=== PATIENT | female | born 1960 | race Caucasian/White ===

== ENCOUNTER 2016-07-26 08:48 | Outpatient (CLI) | payer BC ==
[~2016-07-26] VITALS: Ht 162.6 cm; Wt 47.6 kg
--- OUTSIDE RECORDS SUMMARY | 2016-07-26 08:50 | XMS REPORT | Continuity of Care Document ---
Author Author [facility] Organization [facility] Address Unknown Phone Unavailable Care Team Providers Care Police Liaison Name Role Phone PCP Unavailable Source Comments Some departments are not documenting in the electronic medical record. If you do not see the information that you expected, contact Release of Information in the Health Information Management department at [phone] for further assistance in locating additional records.[facility] Active Allergies and Adverse Reactions Not on File Current Medications Not on file Active Problems Not on file Social History Tobacco Use Types Packs/Day Years Used Date Never Assessed Plan of Care Date Type Specialty Providers Description 08/23/2016 Appointment Orthopedic Surgery Duane Soto MD [address] [facility] [address] [place] [address] [phone] (Fax) Health Maintenance Due Date Last Done Comments Hepatitis C Screening 1960 Physical (Comprehensive) 08/18/1966 Exam Pertussis Vaccine 08/18/1970 Tetanus Vaccine 08/18/1976 Cervical Cancer Screening 08/18/1980 Breast Cancer Screening 1999 Colorectal Cancer 08/18/2009 Screening Influenza Vaccine 01/28/2016 Results from Last 3 Months Not on file
[2016-07-26] MEDS ORDERED: BUDE10.2 IH (09:23)
[2016-07-26] MEDS ORDERED: BUPR1FIL3 SL (09:23)
[2016-07-26] MEDS ORDERED: CITA40TA11 PO (09:23)
[2016-07-26] MEDS ORDERED: GABA-488 PO (09:23)
== END 2016-07-26 09:27 ==
LOC: PREOP 08:48
PROVIDERS: ATTEND Pain Medicine Pain Medicine
DX: Z01.818 Encounter for other preprocedural examination (principal); M54.5 Low back pain; G89.4 Chronic pain syndrome

== ENCOUNTER 2016-07-29 05:57 | Day surgery (SDC) | payer BC ==
[~2016-07-29] VITALS: Ht 162.6 cm; Wt 47.6 kg
[~2016-07-29 05:57] MED LIST: BUDE10.2 IH; BUPR1FIL3 SL; CITA40TA11 PO; GABA-488 PO
--- OUTSIDE RECORDS SUMMARY | 2016-07-29 06:01 | XMS REPORT | Continuity of Care Document ---
Author Author [facility] Organization [facility] Address Unknown Phone Unavailable Care Team Providers Care Stock Grader Name Role Phone PCP Unavailable Source Comments Some departments are not documenting in the electronic medical record. If you do not see the information that you expected, contact Release of Information in the Health Information Management department at [phone] for further assistance in locating additional records.[facility] Active Allergies and Adverse Reactions Not on File Current Medications Not on file Active Problems Not on file Social History Tobacco Use Types Packs/Day Years Used Date Never Assessed Plan of Care Date Type Specialty Providers Description 08/23/2016 Appointment Orthopedic Surgery Duane Soto MD [address] [facility] [address] [place] [address] [phone] (Fax) Health Maintenance Due Date Last Done Comments Hepatitis C Screening 1960 Physical (Comprehensive) 08/18/1966 Exam Pertussis Vaccine 08/18/1970 Tetanus Vaccine 08/18/1976 Cervical Cancer Screening 08/18/1980 Breast Cancer Screening 1999 Colorectal Cancer 08/18/2009 Screening Influenza Vaccine 01/28/2016 Results from Last 3 Months Not on file
--- OUTSIDE RECORDS SUMMARY | 2016-07-29 06:01 | XMS REPORT | Continuity of Care Document ---
Author Author [facility] Organization [facility] Address Unknown Phone Unavailable Care Team Providers Care Sociology Professor Name Role Phone PCP Unavailable Source Comments Some departments are not documenting in the electronic medical record. If you do not see the information that you expected, contact Release of Information in the Health Information Management department at [phone] for further assistance in locating additional records.[facility] Active Allergies and Adverse Reactions Not on File Current Medications Not on file Active Problems Not on file Social History Tobacco Use Types Packs/Day Years Used Date Never Assessed Plan of Care Date Type Specialty Providers Description 08/23/2016 Appointment Orthopedic Surgery Duane Soto MD [address] [facility] [address] [place] [address] [phone] (Fax) Health Maintenance Due Date Last Done Comments Hepatitis C Screening 1960 Physical (Comprehensive) 08/18/1966 Exam Pertussis Vaccine 08/18/1970 Tetanus Vaccine 08/18/1976 Cervical Cancer Screening 08/18/1980 Breast Cancer Screening 1999 Colorectal Cancer 08/18/2009 Screening Influenza Vaccine 01/28/2016 Results from Last 3 Months Not on file
[2016-07-29] MEDS ORDERED: LACTATED RINGERS 1,000 ML IV PRN (06:56)
[2016-07-29] MEDS ORDERED: proPOfol 200 MG/20 ML (DIPRIVAN) VIAL IV ONE (06:58)
[2016-07-29] MEDS ORDERED: LACTATED RINGERS 1,000 ML IV ONE (06:58)
[2016-07-29] MEDS ORDERED: fentaNYL INJECTION 100 MCG/2 ML AMP ONE (06:58)
[2016-07-29] MEDS ORDERED: MIDAZOLAM 2 MG/2 ML (VERSED) VIAL ONE (06:59)
[2016-07-29] MEDS ORDERED: ceFAZolin 1 GM/NS 50 ML IVPB IV ONE ×2 (07:00)
[2016-07-29 07:10] VITALS: BP 107/54
[2016-07-29] MEDS ORDERED: LIDOCAINE 1% INJ 20 ML (XYLOCAINE) VIAL ONE (07:12)
[2016-07-29] MEDS ORDERED: MUPIROCIN 2% OINT 22 GM (BACTROBAN) TUBE ONE (07:12)
--- NOTE | 2016-07-29 07:27 | Progress Note-Pre Operative ---
Pre-Operative Progress Note H&P Reviewed The H&P was reviewed, patient examined and no changes noted. Date H&P Reviewed: Jul 29, 2016 Time H&P Reviewed: 07:27 Pre-Operative Diagnosis: chronic pain syndrome, lumbago, degenerative disc disease BRIDGET ELIZABETH MD Jul 29, 2016 7:27 am
[2016-07-29] MEDS ORDERED: ONDANSETRON 4 MG/2 ML (SDV) Z0FRAN IVP PRN (08:45)
[2016-07-29] MEDS ORDERED: morphine INJ 10 MG/ML 1ML (SYR OR VIAL) IVP PRN (08:45)
--- NOTE | 2016-07-29 08:54 | Discharge Inst-Simple/Standard ---
Discharge Inst-Standard Patient Instructions/Follow Up Plan of Care/Instructions/FU: Call clinic for any fevers, chills or bleeding/drainage from surgical site. Do not remove the dressings. No showers or bathing for 7 days. Turn off the spinal cord stimulator when driving. Follow up in clinic on 08/03/16 at 10:00 am Call the spinal cord stimulator lead generation representative or pain clinic for any questions or concerns. Activity as Tolerated: Yes Discharge Diet: No Restrictions BRIDGET ELIZABETH MD Jul 29, 2016 08:54
--- NOTE | 2016-07-29 08:57 | Operative Report ---
Operative Report Date of Procedure/Surgery Jul 29, 2016 Post-Operative Diagnosis chronic pain syndrome, lumbago, degenerative disc disease lumbar Procedure Performed Name of Procedure: AP Film of Thoracolumbar Spine w/ fluoroscopy guidance and interpretation Placement of specialized epidural needle to the L2-3 inter space bilaterally Placement of linear lead with dual 8 electrodes to the T7-T8 area Intra-operative complex programming of lead taking 30 minutes. Anchoring the spinal cord stimulator lead to the skin Complex programming in recovery taking 30 minutes. Description of Procedure Anesthesia Type: MAC Estimated blood loss (mL): <5 ml Specimen(s) collected none Indications The patient is an established patient with the above known diagnosis. The patient understands the reason for the procedure along with the risks, benefits and alternatives available. The patient has had the opportunity to ask questions prior to the procedure, and the patient has given written, informed, consent to proceed with the procedure. Medical Necessity: This patient has chronic pain that has failed to respond to conservative measures as outlined in the original history and physical exam. Patient's symptoms include pain in the low back and left leg. The goals of treatment are to 1) achieve optimal pain control, recognizing that a pain-free state may not be achievable; 2) minimize adverse outcomes; 3) enhance functional abilities, and physical and psychological well-being; and 4) enhance the quality of life for patients with chronic pain. Procedure After obtaining written informed consent patient. Patient was taken to the operating room. Pre-procedure blood pressure and pulse were stable and recorded in patients clinic chart. A formal time out was performed. Ancef 1 gm IV was given. The patient was placed in the prone position on operating room table. The patient was attached to a vital sign monitor, continuously monitoring saturation through pulse oximeter, pulse rate, and routine checks on the blood pressure as recorded in the anesthesia record. Moderate level sedation was then achieved by anesthesia as detailed in anesthesia record. A large portion of the dorsal cavity was scrubbed with a micro-antibacterial surgical solution. The patient was draped in typical sterile fashion. After confirmation of vertebral count through thorocolumbar films, the C-arm was used to help define the angle and access point for the epidural needle. Prior to needle placement, and after location of the access point, lidocaine 1% was infiltrated into the skin and deeper tissue area for localization prior to specialized epidural needle placement. After the lidocaine had taken effect, a Touhy needle size 14- guage was introduced and advanced at the level of L2-L3 on the right and left side. Once the loss of resistance was positive using a glass syringe, an 8 electrode linear lead was channeled through the epidural needle and guided carefully to the T7-T8 inter space. The same steps were followed to place an 8 electrode lead midline to the left of the first lead. This placement gave appropriate stimulation. Various program settings were worked through within the operating room, to ensure appropriate coverage with the stimulation. Minor adjustments were made as needed to develop excellent coverage. There was no evidence of paresthesia, heme or CSF. Once the coverage was optimal, the guide needle was removed from the insertion site. The leads then were anchored using the tapered anchor 2-0 silk. Sterile dressing applied using tegaderm, bacitracin ointment and gauze. The patient was then taken from the operating room via stretcher and placed in a recovery room. Once in the recovery room, the fine tune adjustments were made to the stimulation pattern. This additional programming was needed to give the patient optimal coverage during the trial. Post operatively the patient was monitored until stable. Following the procedure the patient's vital signs were stable. fluoro time are recorded in the patient chart. Allergies and Home Medications Allergies Coded Allergies: No Known Drug Allergies (Unverified , 07/26/16) Home Medications Budesonide/Formoterol Fumarate 10.2 Gm Hfa.aer.ad 2 PUFF IH QID (Reported) Buprenorphine HCl/Naloxone HCl 1 Each Film 1 EACH SL QID (Reported) Citalopram Hydrobromide 40 Mg Tablet 40 MG PO DAILY (Reported) Gabapentin 300 Mg Capsule 300 MG PO HS (Reported) BRIDGET ELIZABETH MD Jul 29, 2016 08:56
[2016-07-29 09:10] VITALS: BP 90/53
[2016-07-29 09:40] VITALS: BP 93/45
--- NOTE | 2016-07-29 09:41 | Diagnostic Imaging Report ---
INDICATION: Back pain. Intraoperative fluoroscopy used per Dr. Cartagena during placement of stimulator leads into the thoracic canal. Single view demonstrates leads overlying the thoracic canal, tip not well visualized. 9 minutes and 53 seconds of fluoroscopy time was used. IMPRESSION: Intraoperative fluoroscopy demonstrates nerve stimulator device in place overlying the thoracic canal. Dictated by: Dictated on workstation # [id number]
[2016-07-29 10:10] VITALS: BP 96/50
[2016-07-29 11:20] VITALS: BP 96/50
== END 2016-07-29 11:20 | disposition home or self-care (01) ==
LOC: SDC 05:57
PROVIDERS: ATTEND Pain Medicine Pain Medicine
DX: G89.4 Chronic pain syndrome (principal); M51.86 Other intervertebral disc disorders, lumbar region; M54.5 Low back pain
CPT/HCPCS: 87081

== ENCOUNTER 2016-11-07 11:26 | Outpatient (CLI) | payer BC ==
[~2016-11-07] VITALS: Ht 162.6 cm; Wt 48.5 kg
[2016-11-07] MEDS ORDERED: MIRT15TA8 PO (11:48)
[2016-11-07] MEDS ORDERED: CYCL10TA9 PO (11:48)
[2016-11-07 11:51] VITALS: BP 105/59
[2016-11-07 12:16] LABS: BASOPHILS % (AUTO) 1 % (0-10); EOSINOPHILS # (AUTO) 0.2 10^3/uL (0.0-0.3); EOSINOPHILS % (AUTO) 4 % (0-10); LYMPHOCYTES # (AUTO) 1.9 X 10^3 (1.0-4.0); LYMPHOCYTES % (AUTO) 32 % (12-44); MEAN CORPUSCULAR HEMOGLOBIN 30 PG (25-34); MEAN CORPUSCULAR HGB CONC 33 G/DL (32-36); MEAN CORPUSCULAR VOLUME 91 FL (80-99); MEAN PLATELET VOLUME 8.7 FL (7.4-10.4); MONOCYTES # (AUTO) 0.4 X 10^3 (0.0-1.0); MONOCYTES % (AUTO) 6 % (0-12); NEUTROPHILS # (AUTO) 3.4 X 10^3 (1.8-7.8); NEUTROPHILS % (AUTO) 57 % (42-75); PLATELET COUNT 260 10^3/uL (130-400); RED BLOOD COUNT 4.46 10^6/uL (4.35-5.85); RED CELL DISTRIBUTION WIDTH 13.1 % (10.0-14.5); WHITE BLOOD COUNT 5.9 10^3/uL (4.3-11.0)
[2016-11-07 12:37] LABS: ALANINE AMINOTRANSFERASE 12 U/L (0-55); ALBUMIN 3.5 G/DL (3.2-4.5); ANION GAP 9 MMOL/L (5-14); ASPARTATE AMINO TRANSFERASE 21 U/L (5-34); BILIRUBIN,TOTAL 0.3 MG/DL (0.1-1.0); BLOOD UREA NITROGEN 4 MG/DL (7-18); BUN/CREATININE RATIO 6; CALCIUM 8.8 MG/DL (8.5-10.1); CARBON DIOXIDE 28 MMOL/L (21-32); CHLORIDE 102 MMOL/L (98-107); CREATININE SERUM 0.68 MG/DL (0.60-1.30); GFR ESTIMATED > 60; GLUCOSE 110 MG/DL (70-105); POTASSIUM 3.2 MMOL/L (3.6-5.0); SODIUM 139 MMOL/L (135-145); TOTAL PROTEIN 6.6 G/DL (6.4-8.2)
== END 2016-11-07 14:05 | disposition home or self-care (01) ==
LOC: PREOP 11:26
PROVIDERS: ATTEND Orthopaedic Surgery
DX: Z01.812 Encounter for preprocedural laboratory examination (principal); Z11.2 Encounter for screening for other bacterial diseases; M51.24 Other intervertebral disc displacement, thoracic region
CPT/HCPCS: 36415; 80053; 85025; 86850; 86900; 86901; 87081